=== PATIENT | male | born 1975 | race Two or more races ===

== ENCOUNTER 2022-03-06 06:00 | Inpatient (IN) | payer OTHER ==
[~2022-03-06] VITALS: Ht 180.3 cm; Wt 76.2 kg
[~2022-03-06 06:00] MED LIST: PEPCID AC10 MG PO; PROTONIX20 MG PO
[2022-03-09] MEDS ORDERED: AMOX1TAB5 PO (12:29)
[2022-03-09] MEDS ORDERED: ULTRACET PO (12:29)
== END 2022-03-09 13:44 | disposition home or self-care (01) | DRG 419 ==
LOC: CIR.AMB 06:00 → EDBD 11:45 → CIR.AMB 11:45 → O/R 12:57 → SURH 12:57 → CIR.AMB 15:15 → SURH 03-09 13:44
PROVIDERS: ADMIT Surgery; ATTEND Surgery
PROC: BF13YZZ Fluoroscopy of Gallbladder and Bile Ducts using Other Contrast (ICD-10-PCS; 2022-03-06)
PROC: 0FT44ZZ Resection of Gallbladder, Percutaneous Endoscopic Approach (ICD-10-PCS; principal; 2022-03-06 15:15)
DX: K80.10 Calculus of gallbladder with chronic cholecystitis without obstruction (principal); Z20.822 Contact with and (suspected) exposure to COVID-19